=== PATIENT | female | born 1970 | race Caucasian/White ===

== ENCOUNTER 2025-01-15 09:18 | Inpatient (IN) | payer SELFPAY ==
[~2025-01-15] VITALS: Ht 160 cm; Wt 80.0 kg
[2025-01-15 10:57] LABS: BASOPHILS % (AUTO) 0.5 % (0.0-2.0); EOSINOPHILS % (AUTO) 2.6 % (1.0-6.0); HEMOGLOBIN 11.3 g/dL (12.0-16.0); LYMPHOCYTES # (AUTO) 1.6 K/uL (1.0-4.8); LYMPHOCYTES % (AUTO) 24.4 % (22.0-44.0); MEAN CORPUSCULAR HEMOGLOBIN 31.7 pg (26.0-34.0); MEAN CORPUSCULAR HGB CONC 34.2 G/dL (31.0-37.0); MEAN CORPUSCULAR VOLUME 93 fL (80-100); MONOCYTES # (AUTO) 0.5 K/uL (0.1-1.0); MONOCYTES % (AUTO) 7.6 % (2.0-9.0); NEUTROPHILS # (AUTO) 4.1 K/uL (1.8-7.7); NEUTROPHILS % (AUTO) 64.9 % (40.0-70.0); RED BLOOD CELL COUNT(AUTO) 3.55 MIL/uL (4.00-5.20); RED CELL DISTRIBUTION WIDTH 15.1 % (11.5-14.5); WHITE BLOOD COUNT (AUTO) 6.4 K/uL (4.5-11.0)
[2025-01-15 10:58] LABS: PROTHROMBIN TIME 11.9 SEC (9.4-11.6)
[2025-01-15 11:14] LABS: ANION GAP 13 mmol/L (8-16); CALCIUM, TOTAL 8.2 mg/dL (8.8-10.5); CARBON DIOXIDE 18 mmol/L (22-29); CHLORIDE 114 mmol/L (98-107); CREATININE 1.77 mg/dL (0.60-1.30); GLOMERULAR FILTR. RATE CALC 30 mL/min (>60); GLUCOSE,RANDOM 174 mg/dL (70-110); POTASSIUM 4.7 mmol/L (3.5-5.1); SODIUM SERUM 145 mmol/L (136-145); UREA NITROGEN, BLOOD 28 mg/dL (7-18)
[2025-01-15 11:24] LABS: CREATINE KINASE, TOTAL ONLY 251 U/L (26-192); PLATELET COUNT (AUTO) 88 K/uL (150-450); RBC MORPHOLOGY COMMENT NORMAL RBC MORPH; TROPONIN I-HIGH SENSITIVITY 13 ng/L (<51)
[2025-01-15 11:38] LABS: ALBUMIN 1.7 g/dL (3.4-5.0); BILIRUBIN,DIRECT 0.6 mg/dL (0.00-0.20); BILIRUBIN,TOTAL 1.9 mg/dL (0.1-1.0); TOTAL PROTEIN, SERUM 5.6 g/dL (6.4-8.2)
[2025-01-15] MEDS ORDERED: LISI-894 PO (14:10)
[2025-01-15] MEDS ORDERED: LACT10SO85 PO (14:10)
[2025-01-15] MEDS ORDERED: SPIR50TA27 PO ×2 (14:10→14:21)
[2025-01-15] MEDS ORDERED: PROP10TA73 PO ×2 (14:10→14:23)
[2025-01-15] MEDS ORDERED: RIFAX550 PO (14:10)
[2025-01-15] MEDS ORDERED: MORPHINE SULFATE 2 MG/ML SYRINGE IVP PRN (14:30)
[2025-01-15] MEDS ORDERED: MAGNESIUM HYDROXIDE SUSPENSION 30 ML UDCUP PO PRN (14:30)
[2025-01-15] MEDS ORDERED: HYDROCODONE/ACETAMINOPHEN 5-325 MG TABLET PO PRN (14:30)
[2025-01-15] MEDS ORDERED: IPRATROPIUM BROMIDE 0.5 MG/2.5 ML NEB SOLUTION NEB PRN (14:30)
[2025-01-15] MEDS ORDERED: BISACODYL 10 MG RECTAL RECTAL SUPPOSITORY PR PRN (14:30)
[2025-01-15] MEDS ORDERED: ONDANSETRON HCL 4 MG/2 ML VIAL IVP PRN (14:30)
[2025-01-15] MEDS ORDERED: ACETAMINOPHEN 325 MG TABLET PO PRN (14:30)
[2025-01-15] MEDS ORDERED: ZOLPIDEM TARTRATE 5 MG TABLET PO PRN (14:30)
[2025-01-15] MEDS ORDERED: ALBUTEROL SULFATE 2.5 MG/0.5 ML NEB SOLUTION NEB PRN (14:30)
[2025-01-15] MEDS: LACTULOSE 20 GM/30 ML SOLUTION UDCUP PO ONE (14:52)
[2025-01-15] MEDS: LACTULOSE 20 GM/30 ML SOLUTION UDCUP PO SCH (16:00)
[2025-01-15] MEDS: HEPARIN SODIUM,PORCINE 5,000 UNITS/ML VIAL SQ SCH (16:00)
[2025-01-15] MEDS: SPIRONOLACTONE 25 MG TABLET PO SCH (16:09)
[2025-01-15] MEDS: LISINOPRIL 10 MG TABLET PO ONE (17:03)
[2025-01-15] MEDS: HydrALAZINE HCL 20 MG/ML VIAL IVP PRN (17:03)
[2025-01-15 18:44] VITALS: BP 152/71; PULSE 67; RESP 20; TEMP 98.3; O2SAT 100
[2025-01-15 19:55] VITALS: BP 124/58; PULSE 64; RESP 18; TEMP 98.2; O2SAT 100
[2025-01-15] MEDS: RIFAXIMIN 550 MG TABLET PO SCH (20:21)
[2025-01-16 04:10] VITALS: BP 138/64; PULSE 54; RESP 18; TEMP 98.1; O2SAT 99
[2025-01-16 07:37] VITALS: BP 127/68; PULSE 57; RESP 19; TEMP 97.6; O2SAT 99
[2025-01-16] MEDS: PANTOPRAZOLE SODIUM 40 MG DR TABLET PO SCH (09:46)
[2025-01-16] MEDS: LISINOPRIL 20 MG TABLET PO SCH (09:46)
[2025-01-16] MEDS: PROPRANOLOL HCL 10 MG TABLET PO SCH (10:21)
== END 2025-01-16 14:34 | disposition left against medical advice (07) | DRG 443 ==
LOC: EMS 09:46 → EDH 14:23 → 6S 18:38
PROVIDERS: ADMIT Hospitalist; ATTEND Hospitalist
DX: K76.82 Hepatic encephalopathy (principal); Z90.49 Acquired absence of other specified parts of digestive tract; Z53.29 Procedure and treatment not carried out because of patient's decision for other reasons
CPT/HCPCS: 71045; 80048; 80076; 82140; 82550; 83880; 84484; 85025; 85610; 85730; 93005; 96374; 99285; J0360; J1644; 36415-L1; 36415-TC